=== PATIENT | male | born 1960 | race African-American/Black ===

== ENCOUNTER 2017-11-10 21:01 | Emergency (ER) | payer MEDICARE ==
[~2017-11-10] VITALS: Ht 180.3 cm; Wt 81.8 kg
[2017-11-10 21:03] VITALS: BP 127/81
== END 2017-11-10 21:57 | disposition home or self-care (01) ==
LOC: ED 21:36
DX: F10.120 Alcohol abuse with intoxication, uncomplicated (principal)
CPT/HCPCS: 99281

== ENCOUNTER 2018-11-04 13:08 | Observation (INO) | payer MEDICARE ==
[~2018-11-04] VITALS: Ht 188 cm; Wt 75.0 kg
[2018-11-04 13:47] LABS: BASOPHILS # (AUTO) 0.03 x10^3/uL (0-0.1); BASOPHILS % (AUTO) 1 % (0-1); EOSINOPHILS # (AUTO) 0.15 x10^3/uL (0-0.4); EOSINOPHILS % (AUTO) 4 % (1-7); LYMPHOCYTES # (AUTO) 1.71 x10^3/uL (1-3.4); LYMPHOCYTES % (AUTO) 47 % (22-44); MD NO; MEAN CORPUSCULAR HEMOGLOBIN 31.7 pg (27.5-34.5); MEAN CORPUSCULAR HGB CONC 32.9 g/dL (33.2-36.2); MEAN CORPUSCULAR VOLUME 96.4 fL (81-97); MEAN PLATELET VOLUME 8.1 fL (7.4-10.4); MONOCYTES # (AUTO) 0.37 x10^3/uL (0.2-0.8); MONOCYTES % (AUTO) 10 % (2-9); NEUTROPHILS # (AUTO) 1.37 x10^3/uL (1.8-6.8); NEUTROPHILS % (AUTO) 38 % (42-75); PLATELET COUNT 280 x10^3/uL (130-400); RED BLOOD COUNT 4.22 x10^6/uL (4.38-5.82); RED CELL DISTRIBUTION WIDTH 12.6 % (9.4-14.8)
[2018-11-04 14:00] LABS: ACETAMINOPHEN < 2 mcg/mL (10-30); ALBUMIN 3.5 g/dL (3.4-5.0); ANION GAP 6 mmol/L (5-15); CHLORIDE 109 mmol/L (98-107); CREATININE 0.73 mg/dL (0.7-1.3); SALICYLATE LEVEL 1.8 mg/dL (2.8-20.0)
[2018-11-04] MEDS ORDERED: ZIPRASIDONE 20 MG INJ IM ONE ×2 (15:00→15:01)
[2018-11-04] MEDS ORDERED: ZIPRASIDONE 20MG CAPSULE PO PRN (15:30)
[2018-11-04] MEDS ORDERED: ONDANSETRON ODT 4 MG PO PRN (15:30)
[2018-11-04] MEDS ORDERED: ZIPRASIDONE 20 MG INJ IM PRN (15:30)
[2018-11-04] MEDS ORDERED: POLYETHYLENE GLYCOL 17 GM PACKET PO PRN (15:30)
[2018-11-04] MEDS ORDERED: ACETAMINOPHEN 325 MG TABLET PO PRN (15:30)
[2018-11-04] MEDS ORDERED: DOCUSATE 100 MG CAPSULE PO PRN (15:30)
[2018-11-04 17:16] LABS: AMPHETAMINE SCREEN, URINE Negative (Negative); BARBITURATE SCREEN, URINE Negative (Negative); BENZODIAZEPINE SCREEN, URINE Negative (Negative); CANNABINOID SCREEN, URINE Negative (Negative); COCAINE SCREEN, URINE Negative (Negative); METHADONE SCREEN, URINE Negative (Negative); OPIATE SCREEN, URINE Negative (Negative)
[2018-11-04 20:28] VITALS: BP 109/65
[2018-11-04] MEDS ORDERED: QUETIAPINE 25MG TABLET PO SCH (21:00)
[2018-11-05] MEDS ORDERED: SENNA/DOCUSATE TABLET PO SCH (09:00)
== END 2018-11-04 21:30 ==
LOC: ED 14:09 → SUATTDRO 15:26 → EDIP 15:27 → 2N 20:01
PROVIDERS: ADMIT Family Medicine; ATTEND Family Medicine
DX: F22 Delusional disorders (principal); R44.3 Hallucinations, unspecified; R62.7 Adult failure to thrive; Z59.0 Homelessness
CPT/HCPCS: 36415; 80048; 80307; 80329; 82040; 85025; 96372; 99284; G0378; J3486; G0480

== ENCOUNTER 2018-12-01 03:30 | Emergency (ER) | payer MEDICARE ==
[~2018-12-01] VITALS: Ht 180.3 cm; Wt 80.0 kg
[2018-12-01 03:31] VITALS: BP 148/89
--- NOTE | 2018-12-01 04:02 | NUR ---
Patient/Caregiver given discharge instructions and they have confirmed that they understand the instructions. Patient ambulatory with steady gait.
== END 2018-12-01 04:04 | disposition home or self-care (01) ==
LOC: ED 03:45
DX: H92.09 Otalgia, unspecified ear (principal); G89.29 Other chronic pain; Z72.9 Problem related to lifestyle, unspecified
CPT/HCPCS: 99283